=== PATIENT | female | born 1940 | race Two or more races ===

== ENCOUNTER 2023-07-21 10:22 | Emergency (ER) | payer OTHER ==
[~2023-07-21] VITALS: Ht 152.4 cm; Wt 48.1 kg
[2023-07-21] MEDS ORDERED: AMLODIPINE (10:42)
[2023-07-21] MEDS ORDERED: DICLOFENAC SODI50 MG PO (13:53)
== END 2023-07-21 13:58 | disposition home or self-care (01) ==
LOC: ER 10:22
DX: M54.31 Sciatica, right side (principal); I10 Essential (primary) hypertension
CPT/HCPCS: 96372; 99283; J1885; J2360